=== PATIENT | female | born 1965 ===

== ENCOUNTER 2024-08-03 07:21 | Day surgery (SDC) | payer BC ==
[2024-08-03] MEDS ORDERED: PROPOFOL 200 MG/20 ML BOTTLE ONE (09:00)
[2024-08-03 10:55] VITALS: TEMP 97.5
== END 2024-08-03 10:55 | disposition home or self-care (01) ==
LOC: DS 07:21
PROVIDERS: ATTEND Surgery
DX: Z12.11 Encounter for screening for malignant neoplasm of colon (principal); K63.89 Other specified diseases of intestine; M19.90 Unspecified osteoarthritis, unspecified site; Z79.899 Other long term (current) drug therapy; Z98.890 Other specified postprocedural states
CPT/HCPCS: 45380; 88305; J3490; J7120; A4663